=== PATIENT | female | born 1995 | race Two or more races ===

== ENCOUNTER → 2020-10-12 10:20 | Outpatient (BNVA) | payer OTHER, SELFPAY | PROVIDERS: Visit Provider Physician Assistant Medical | DX: M25.532 Pain in left wrist (principal); M25.531 Pain in right wrist; M77.8 Other enthesopathies, not elsewhere classified | CPT/HCPCS: 99203 ==

== ENCOUNTER → 2020-10-22 13:24 | Outpatient (BNVA) | payer OTHER, SELFPAY | PROVIDERS: Visit Provider Physician Assistant Medical | DX: M25.532 Pain in left wrist (principal); M25.531 Pain in right wrist; M77.8 Other enthesopathies, not elsewhere classified | CPT/HCPCS: 99213 ==